=== PATIENT | male | born 1940 | race Hispanic/Latino ===

== ENCOUNTER 2019-08-29 07:31 | Emergency (ER) | payer OTHER ==
[~2019-08-29 07:31] MED LIST: AMOX-426 PO; ATOR10 PO; LEVO500T2 PO; LOSA25TA41 PO; METF-445 PO; PHEN-948 PO; TAMS-1 PO
[2019-08-29 08:12] LABS: APPEARANCE,URINE Clear (CLEAR); BILIRUBIN,URINE Negative (NEGATIVE); COLOR,URINE Yellow (YELLOW); GLUCOSE, URINE (UA) Negative (NEGATIVE); KETONES,URINE Negative (NEGATIVE); LEUKOCYTE ESTERASE ,URINE Moderate (NEGATIVE); NITRATE,URINE Negative (NEGATIVE); OCCULT BLOOD,URINE Moderate (NEGATIVE); PROTEIN,URINE POS 1+ mg/dL (NEGATIVE); UROBILINOGEN,URINE 0.2 mg/dL (0.2-1.0)
[2019-08-29 08:18] LABS: CREATININE 1.9 mg/dL (0.5-1.5); POTASSIUM 4.6 mmol/L (3.5-5.1)
[2019-08-29 08:20] LABS: BASOPHILS % (AUTO) 0.4 % (0.0-5.0); EOSINOPHILS % (AUTO) 2.3 % (0.0-8.0); HEMATOCRIT 33.9 % (42-54); LYMPHOCYTES % (AUTO) 25.1 % (21.0-51.0); MEAN CORPUSCULAR HEMOGLOBIN 30.8 pg (27.0-33.0); MEAN CORPUSCULAR HGB CONC 32.4 g/dL (32.0-36.0); MONOCYTES % (AUTO) 7.8 % (3.0-13.0); PLATELET COUNT (AUTO) 181 K/uL (130-400); RED BLOOD CELL COUNT(AUTO) 3.57 MIL/uL (4.50-6.20); RED CELL DISTRIBUTION WIDTH 13.4 % (11.0-15.5)
[2019-08-29 08:21] LABS: INR 1.08 (0.85-1.15); PARTIAL THROMBOPLASTIN TIME 27.1 SEC (26.3-35.5); PROTHROMBIN TIME 11.3 SEC (9.6-11.6)
[2019-08-29 08:25] LABS: ALBUMIN 3.6 g/dL (3.5-5.0); BILIRUBIN,TOTAL 0.4 mg/dL (0.2-1.0); TOTAL PROTEIN, SERUM 7.4 g/dL (6.0-8.3)
[2019-08-29 08:48] LABS: BACTERIA,URINE Rare /HPF (None Seen); WBC,URINE 26-50 /HPF (0-1)
[2019-08-29] MEDS ORDERED: SODIUM CHLORIDE 0.9% 1000ML 1,000 ML IV ONE (09:38)
[2019-08-29] MEDS ORDERED: CEFTRIAXONE SODIUM 1 GM ONE (09:40)
[2019-08-29] MEDS ORDERED: SODIUM CHLORIDE 0.9% 50 ML IV ONE (09:40)
== END 2019-08-29 10:25 | disposition home or self-care (01) ==
LOC: EDH 07:31
DX: N39.0 Urinary tract infection, site not specified (principal); R31.9 Hematuria, unspecified; N32.89 Other specified disorders of bladder; F03.90 Unspecified dementia, unspecified severity, without behavioral disturbance, psychotic disturbance, mood disturbance, and anxiety; E11.9 Type 2 diabetes mellitus without complications; C67.9 Malignant neoplasm of bladder, unspecified; I10 Essential (primary) hypertension; E78.00 Pure hypercholesterolemia, unspecified; Z87.891 Personal history of nicotine dependence; Z90.49 Acquired absence of other specified parts of digestive tract
CPT/HCPCS: 36415; 74176; 80053; 81001; 85025; 85610; 85730; 86850; 86900; 86901; 87088; 96374; 99284; J0696; J7030

== ENCOUNTER 2020-01-12 10:15 | Inpatient (IN) | payer OTHER ==
[~2020-01-12] VITALS: Ht 154.9 cm; Wt 72.0 kg
[2020-01-12] MEDS ORDERED: CEFTRIAXONE SODIUM 2 GM VIAL ONE (11:37)
[2020-01-12] MEDS ORDERED: LORAZEPAM 2 MG/ML 1 ML VIAL ONE ×2 (13:08→18:19)
[2020-01-12] MEDS ORDERED: HALOPERIDOL LACTATE 5 MG/ML VIAL ONE (15:17)
[2020-01-12] MEDS ORDERED: DiphenhydrAMINE HCL 50 MG/ML VIAL IV PRN (15:30)
[2020-01-12] MEDS ORDERED: NITROGLYCERIN 0.4 MG SL TAB SL PRN (15:30)
[2020-01-12] MEDS ORDERED: MAG HYDROX/AL HYDROX/SIMETH ES 30 ML SUSP UDCUP PO PRN (15:30)
[2020-01-12] MEDS: CEFTRIAXONE SODIUM 1 GM IV SCH (15:30)
[2020-01-12] MEDS ORDERED: ACETAMINOPHEN 325 MG TAB PO PRN ×2 (15:30)
[2020-01-12] MEDS ORDERED: ONDANSETRON HCL 4 MG/2 ML VIAL IV PRN (15:30)
[2020-01-12] MEDS ORDERED: DIPHENHYDRAMINE HCL 25 MG CAPSULE PO PRN (15:30)
[2020-01-12] MEDS ORDERED: GUAIFENESIN-DM 200/20 MG 10 ML PO PRN (15:30)
[2020-01-12] MEDS ORDERED: LACTULOSE 20 GM/30 ML UDCUP PO PRN (15:30)
[2020-01-12] MEDS ORDERED: ACETAMINOPHEN ELIXIR 650 MG/20.3 ML UDCUP ONE (22:57)
[2020-01-13] MEDS ORDERED: ENOXAPARIN SODIUM 40 MG/0.4 ML SYRINGE SQ SCH (09:00)
[2020-01-13] MEDS: FAMOTIDINE 20MG TAB 20 MG TAB PO SCH (09:00)
[2020-01-13] MEDS ORDERED: ACETAMINOPHEN 325 MG TAB ONE (09:42)
[2020-01-13] MEDS ORDERED: ACETAMINOPHEN ELIXIR 325 MG/10.15ML UDCUP ONE ×2 (09:46→17:36)
[2020-01-13] MEDS ORDERED: FAMOTIDINE 20MG TAB 20 MG TAB ONE (10:39)
[2020-01-13] MEDS ORDERED: SODIUM CHLORIDE 0.9% 100 ML IV ONE (10:40)
[2020-01-13] MEDS ORDERED: CEFTRIAXONE SODIUM 1 GM ONE (10:40)
[2020-01-13] MEDS ORDERED: ENOXAPARIN SODIUM 40 MG/0.4 ML SYRINGE SQ ONE (10:40)
[2020-01-13] MEDS ORDERED: LORAZEPAM 2 MG/ML 1 ML VIAL IVP PRN (15:15)
[2020-01-13] MEDS: AZITHROMYCIN 500MG+NS 250ML 250 ML IV SCH (15:15)
[2020-01-13] MEDS: CEFTRIAXONE SODIUM 1 GM IV SCH (15:30)
[2020-01-13] MEDS ORDERED: AZITHROMYCIN 500MG+NS 250ML 250 ML IV ONE (16:19)
[2020-01-13] MEDS ORDERED: LORAZEPAM 2 MG/ML 1 ML VIAL ONE ×2 (16:47→17:22)
[2020-01-13] MEDS ORDERED: ACETAMINOPHEN 650 MG SUPPOSITORY RC ONE (18:22)
[2020-01-13] MEDS ORDERED: HEPARIN SODIUM 5000UNIT/ML 1ML VIAL SQ SCH (20:00)
[2020-01-13] MEDS ORDERED: HEPARIN SODIUM 5000UNIT/ML 1ML VIAL ONE (20:58)
[2020-01-13] MEDS ORDERED: DiphenhydrAMINE HCL 25 MG/10 ML ELIXIR UDCUP ONE (21:40)
[2020-01-14] VITALS (9 sets, daily range): BP systolic 124–155; BP diastolic 54–112; PULSE 100–115; RESP 23–74; TEMP 101.8
[2020-01-14] MEDS ORDERED: HEPARIN SODIUM 5000UNIT/ML 1ML VIAL ONE ×2 (01:48→10:38)
[2020-01-14] MEDS ORDERED: ACETAMINOPHEN 650 MG SUPPOSITORY RC ONE (06:40)
[2020-01-14] MEDS: FAMOTIDINE 20MG TAB 20 MG TAB PO SCH (09:00)
[2020-01-14] MEDS ORDERED: FAMOTIDINE/PF 20 MG/2 ML VIAL IV ONE (10:39)
[2020-01-14] MEDS ORDERED: CEFTRIAXONE SODIUM 1 GM ONE (10:39)
--- NOTE | 2020-01-14 12:11 | NUR ---
DYSPHAGIA EVAL COMPLETED. POCKETING NOTED. RECOMMEND MECHANICAL SOFT/CHOPPED, THIN LIQUIDS; PILLS CRUSHED WITH APPLESAUCE; CHECK FOR RESIDUE IN MOUTH AFTER THE MEALS. RESULTS AND RECOMMENDATIONS WERE DISCUSSED WITH DAUGHTER AT BEDSIDE. ALL QUESTIONS ANSWERED AT THIS TIME. RECOMMEND CONTINUED P.O. IF Pt HAS A DECLINE FROM CURRENT STATUS, A RE-EVALUATION IS WARRANTED. Addendum: 01/14/20 at 1220 by NEMESIO SORTO [facility] Amended: Links added.
--- NOTE | 2020-01-14 13:38 | NUR ---
[facility] CM spoke to pt's spouse Nia Perry discussed dc plans. Pt is independent prior to admission, lives at home with spouse and daughter. Denies any equipments/services. Feels safe to go back home, spouse and daughter able to assist with transportation and needs as necessary. DC plan to home once stable. CM to cont to follow up. Addendum: 01/14/20 at 1339 by POOJA RICARDO LVN CM Amended: Links added.
[2020-01-14] MEDS: AZITHROMYCIN 500MG+NS 250ML 250 ML IV SCH ×2 (15:15→20:23)
[2020-01-14] MEDS: CEFTRIAXONE SODIUM 1 GM IV SCH (15:30)
[2020-01-14] MEDS ORDERED: SODIUM CHLORIDE 0.9% 500ML 500 ML IV ONE (16:20)
[2020-01-14] MEDS ORDERED: IPRATROPIUM/ALBUTEROL SULFATE 3 ML SOLUTION IH ONE (16:26)
[2020-01-14] MEDS ORDERED: PHARMACY COMMUNICATION MISC SCH ×2 (17:00→19:30)
[2020-01-14] MEDS ORDERED: HEPARIN 25000 UNITS/250 ML D5W 250 ML IV PRN (17:15)
[2020-01-14] MEDS ORDERED: DEXMEDETOMIDINE HCL 400 MCG in SODIUM CHLORIDE 0.9% 100 ML IV SCH (19:15)
[2020-01-14] MEDS ORDERED: HALOPERIDOL LACTATE 5 MG/ML VIAL IM SCH (19:15)
[2020-01-14] MEDS ORDERED: NOREPINEPHRINE 4MG/NS 250ML 250 ML IV SCH (19:45)
--- NOTE | 2020-01-14 20:00 | NUR ---
ADMISSION UPON ARRIVAL RECEIVED REPORT FROM OLENA RN DR. JAMAICA WILLARD ORDER TO RETEST PT FOR COVID AND TRANSFER TO COVID ICU. PT WITH HISTORY OF DEMENTIA UNABLE TO COMPLETE ADMISSION DATABASE NO PERSONAL BELONGINGS/MEDICATIONS AT BEDSIDE. PT DAUGHTER FANNY INFORMED OF CURRENT STATUS AND SITUATION. PT RESTLESS WITH 1:1 SITTER IN NO APPARENT DISTRESS WILL CONTINUE TO MONITOR.
[2020-01-14] MEDS: ACETAMINOPHEN 650 MG SUPPOSITORY RC PRN (20:22)
[2020-01-15] VITALS (30 sets, daily range): BP systolic 120–156; BP diastolic 38–109; PULSE 72–108; RESP 13–43; TEMP 98.3–101.1
[2020-01-15] MEDS ORDERED: ALBUTEROL SULFATE/IPRATROPIUM 103/18 MCG/PUFF 14.7 GM INHR IH PRN (00:15)
--- NOTE | 2020-01-15 00:54 | NUR ---
unable to complete admission data base patient and past medical history due to patient confused/dementia. Will contact daughter in the morning.
[2020-01-15] MEDS: IPRATROPIUM/ALBUTEROL SULFATE 3 ML SOLUTION IH PRN ×4 (01:27→22:42)
[2020-01-15] MEDS: FAMOTIDINE 20MG TAB 20 MG TAB PO SCH (08:31)
[2020-01-15] MEDS: ACETAMINOPHEN 650 MG SUPPOSITORY RC PRN (12:08)
[2020-01-15] MEDS: MEROPENEM 1 GM VIAL IVP SCH (13:25)
[2020-01-15] MEDS: AZITHROMYCIN 500MG+NS 250ML 250 ML IV SCH (14:22)
[2020-01-15] MEDS ORDERED: LORAZEPAM 2 MG/ML 1 ML VIAL IM STA (21:09)
[2020-01-16] VITALS (9 sets, daily range): BP systolic 129–151; BP diastolic 59–83; PULSE 86–112; RESP 16–26; TEMP 97.6–101.9
[2020-01-16] MEDS: MEROPENEM 1 GM VIAL IVP SCH ×2 (00:27→12:38)
[2020-01-16] MEDS: ACETAMINOPHEN 650 MG SUPPOSITORY RC PRN ×2 (02:28→22:04)
[2020-01-16] MEDS ORDERED: FAMOTIDINE/PF 20 MG/2 ML VIAL IV ONE (09:10)
[2020-01-16] MEDS: FAMOTIDINE/PF 20 MG/2 ML VIAL IV SCH (09:32)
[2020-01-16] MEDS: IPRATROPIUM/ALBUTEROL SULFATE 3 ML SOLUTION IH PRN ×2 (10:12→19:38)
[2020-01-16] MEDS ORDERED: ACETAMINOPHEN 325 MG TAB ONE (12:35)
[2020-01-16] MEDS: AZITHROMYCIN 500MG+NS 250ML 250 ML IV SCH (15:13)
[2020-01-16] MEDS ORDERED: HEPARIN SODIUM 5000UNIT/ML 1ML VIAL SQ SCH (15:30)
[2020-01-16] MEDS ORDERED: HALOPERIDOL LACTATE 5 MG/ML VIAL IM PRN (19:45)
[2020-01-16] MEDS ORDERED: HEPARIN 25000 UNITS/250 ML D5W 250 ML IV SCH (22:45)
[2020-01-16] MEDS ORDERED: HEPARIN 25000 UNITS/250 ML D5W 250 ML IV ONE (22:49)
--- NOTE | 2020-01-16 23:06 | NUR ---
Hold Heparin drip Spoke to [facility] [place] and was advised to hold heparin drip and re-evaluate tomorrow. Patient continues to be on heparin SQ Q12H
[2020-01-17] VITALS (12 sets, daily range): BP systolic 133–162; BP diastolic 54–111; PULSE 83–97; RESP 15–26; TEMP 98.6–101.1
[2020-01-17] MEDS: MEROPENEM 1 GM VIAL IVP SCH ×2 (00:16→11:37)
[2020-01-17] MEDS: IPRATROPIUM/ALBUTEROL SULFATE 3 ML SOLUTION IH PRN (06:56)
[2020-01-17] MEDS: FAMOTIDINE/PF 20 MG/2 ML VIAL IV SCH (08:04)
[2020-01-17] MEDS: ACETAMINOPHEN 650 MG SUPPOSITORY RC PRN (11:16)
--- NOTE | 2020-01-17 12:17 | NUR ---
FOLLOW UP COMPLETED. Pt WAS DOWNGRADED TO PUREED TEXTURE OVER THE WEEKEND. Pt WITH INCREASED CONFUSION, BITING ON THE SPOON. Pt WITH LOW P.O. REPORTED BY NURSE LANTIGUA. PLEASE CONSIDER SHORT-TERM ALTERNATE MEANS OF NUTRITION/HYDRATION IF Pt CONTINUES WITH LOW P.O. PLEASE NOTE Pt WAS COOPERATIVE AND PARTICIPATED IN ALL TRIALS DURING THE EVALUATION WHEN DAUGHTER WAS AT BEDSIDE. GENERAL SERVICE OFFICER WILL CONTINUE TO FOLLOW Pt. Addendum: 01/17/20 at 1223 by NEMESIO SORTO, [facility] Amended: Links added.
[2020-01-17] MEDS: AZITHROMYCIN 500MG+NS 250ML 250 ML IV SCH (14:09)
[2020-01-17] MEDS ORDERED: VANCOMYCIN PROTOCOL PER PHARMACY IV SCH (15:45)
[2020-01-17] MEDS: VANCOMYCIN 1GM+NS 250ML 250 ML IV SCH (16:08)
--- NOTE | 2020-01-17 18:40 | NUR ---
REPORT GIVEN TO SAPPHIRE SOLORZANO RN, TRANSFERRED TO ROOM 228 VIA BED, PCCU
[2020-01-17] MEDS: ACETAMINOPHEN 325 MG TAB PO PRN (21:58)
[2020-01-17] MEDS: HEPARIN SODIUM 5000UNIT/ML 1ML VIAL SQ SCH (21:59)
[2020-01-18] VITALS (10 sets, daily range): BP systolic 103–169; BP diastolic 58–81; PULSE 88–121; RESP 18–20; TEMP 98–102
[2020-01-18] MEDS: MEROPENEM 1 GM VIAL IVP SCH ×3 (00:44→23:41)
[2020-01-18] MEDS: HALOPERIDOL LACTATE 5 MG/ML VIAL IM PRN (02:03)
[2020-01-18] MEDS: IPRATROPIUM/ALBUTEROL SULFATE 3 ML SOLUTION IH PRN ×2 (07:45→20:38)
[2020-01-18] MEDS: HEPARIN SODIUM 5000UNIT/ML 1ML VIAL SQ SCH ×2 (08:21→20:29)
[2020-01-18] MEDS: FAMOTIDINE/PF 20 MG/2 ML VIAL IV SCH (08:21)
[2020-01-18] MEDS ORDERED: HYDRALAZINE HCL 20 MG/ML VIAL IM PRN (11:15)
--- NOTE | 2020-01-18 13:04 | NUR ---
FOLLOW UP COMPLETED. RECOMMEND PUREED, THIN LIQUIDS; PILLS CRUSHED WITH APPLESAUCE. Pt TOLERATING PUREED, THIN LIQUID DIET. Pt REQUIRES CUES AND COAXING TO PARTICIPATE IN P.O. Pt WITH LOW P.O. DURING MEAL TIMES. RECOMMEND DIETARY CONSULT AT THIS TIME. RECOMMEND CONTINUED PUREED, THIN LIQUID DIET; PILLS CRUSHED. Pt REQUIRES CUES AND COAXING DURING MEAL TIMES. PHOTO SPECIALIST COORDINATED WITH NURSE LEARY. Addendum: 01/18/20 at 1309 by NEMESIO SORTO [facility] Amended: Links added.
--- NOTE | 2020-01-18 14:21 | NUR ---
RDSCREEN - POOR PO, LOS X [address] of poor PO. Pt with severe dementia, Airborne isolation. Pt with Poor PO intake. No report of GI distress. Recommend Ensure with meals to encourage improved energy intake. Also to monitor nutritional labs. Recommend continue Regular, Puree diet order Recommend Ensure TID RD to continue to monitor. Please notify as additional nutrition concerns arise. Thank you. Addendum: 01/18/20 at [address] Amended: Links added.
[2020-01-18] MEDS: VANCOMYCIN 1GM+NS 250ML 250 ML IV SCH (16:13)
[2020-01-18] MEDS: ACETAMINOPHEN 325 MG TAB PO PRN (20:26)
[2020-01-19 04:07] VITALS: BP 150/71; PULSE 111; RESP 18; TEMP 99.5
[2020-01-19 08:48] VITALS: BP 109/66; PULSE 109; RESP 18; TEMP 99.1
[2020-01-19] MEDS: FAMOTIDINE/PF 20 MG/2 ML VIAL IV SCH (09:03)
[2020-01-19] MEDS: HEPARIN SODIUM 5000UNIT/ML 1ML VIAL SQ SCH ×2 (09:05→20:02)
[2020-01-19 12:32] VITALS: BP 121/77; PULSE 116; RESP 18; TEMP 99.8
[2020-01-19] MEDS: MEROPENEM 1 GM VIAL IVP SCH (13:09)
[2020-01-19] MEDS: FLUCONAZOLE 200 MG/NS 100 ML 100 ML IV SCH (13:09)
--- NOTE | 2020-01-19 15:20 | NUR ---
KIRSTY MELENDEZ SPOKE TO YEISON DESAI AND READ THE RECORDINGS LIBRARIAN NOTES. PATIENT HAD A FEVER OF 102 LAST NIGHT, HIGH RESPIRATIONS AND PULSE RATE. RECORDINGS LIBRARIAN NOTES SAID EVEN THOUGH PATIENT COVID TESTING NEGATIVE XRAY AND CLINICAL SYMPTOMS SAY OTHER MARCUS. AT THIS TIME PATIENT DOES NOT MEET DISCHARGE SCREENS FOR SNF. Addendum: 01/19/20 at 1522 by SHADE AYERS RN CM Amended: Links added.
[2020-01-19 16:46] VITALS: BP 101/37; PULSE 118; RESP 18; TEMP 101.2
[2020-01-19] MEDS: VANCOMYCIN 1GM+NS 250ML 250 ML IV SCH (17:16)
[2020-01-19] MEDS: ACETAMINOPHEN 325 MG TAB PO PRN (17:17)
--- NOTE | 2020-01-19 18:00 | NUR ---
URINE CULTURE TRIED TO OBTAIN URINE CULTURE WITH IN AND OUT CATH AT THIS TIME, AND WAS UNABLE TO COLLECT ANY URINE. WILL TRY AGAIN LATER.
[2020-01-19 20:00] VITALS: BP 148/98; PULSE 115; RESP 23; TEMP 100.7
[2020-01-19 20:26] VITALS: PULSE 102; RESP 20
[2020-01-20] VITALS (8 sets, daily range): BP systolic 113–134; BP diastolic 41–83; PULSE 76–117; RESP 18–21; TEMP 97.2–100.5
--- NOTE | 2020-01-20 06:00 | NUR ---
Daughter updated on patient status. Spoke to Kristy daughter and updated her on patient status. informed her pt had fever during the day at approximately 5pm. No fevers during the night, no distress noted, laying in bed calm and cooperative, no shortness of breath, and hemodynamically stable but AOX1..
[2020-01-20] MEDS: FAMOTIDINE/PF 20 MG/2 ML VIAL IV SCH (08:26)
[2020-01-20] MEDS: HEPARIN SODIUM 5000UNIT/ML 1ML VIAL SQ SCH ×2 (08:35→20:55)
--- NOTE | 2020-01-20 11:19 | NUR ---
FOLLOW UP COMPLETED. ALLIANCE DIRECTOR COORDINATED WITH NURSE HANNON. Pt WITH LOW P.O., TAKING 50% OF ENSURE AT MEALS. Pt CURRENTLY ON PUREED, THIN LIQUIDS; PILLS CRUSHED WITH APPLESAUCE. Pt WITH NO OVERT S/S OF ASPIRATION DURING P.O. AT THIS TIME. LOW P.O. IS A CONCERN AT THIS TIME. RD AWAKE AND ON THE CASE. Addendum: 01/20/20 at 1125 by NEMESIO SORTO [facility] Amended: Links added.
[2020-01-20] MEDS ORDERED: DEXTROSE 5%-WATER 1,000 ML IV ONE (11:37)
[2020-01-20] MEDS: FLUCONAZOLE 200 MG/NS 100 ML 100 ML IV SCH (12:08)
[2020-01-20] MEDS: DEXTROSE 5%-WATER 1,000 ML IV SCH (12:08)
[2020-01-20] MEDS: MEROPENEM 1 GM VIAL IVP SCH ×2 (12:08)
--- NOTE | 2020-01-20 16:11 | NUR ---
DC PLAN SPOKE TO YEISON DESAI SAID PATIENT BELONGS TO DR. MCKEON. SPOKE TO DR. RHODES SAID TO TALK TO DR. SANTOYO. REGARDING HOW LONG ON CURRENT ABX AND IF HE AGREES WITH [facility]. LET NURSE AND CHARGE NURSE KNOW. NURSE SENT MESSAGE NO REPLY BACK AT THIS TIME. Addendum: 01/20/20 at 1620 by SHADE AYERS RN CM Amended: Links added.
[2020-01-20] MEDS: VANCOMYCIN 1GM+NS 250ML 250 ML IV SCH (16:39)
[2020-01-20] MEDS: ACETAMINOPHEN 650 MG SUPPOSITORY RC PRN (16:40)
[2020-01-20] MEDS: HALOPERIDOL LACTATE 5 MG/ML VIAL IM PRN (21:29)
--- NOTE | 2020-01-20 23:55 | NUR ---
O2 SAT Notified by LUNA Clarke at 2300 pt 02 sat in 70s, o2 sat rechecked 68% RA NC applied 5 L with immediate response o2 sat 94% titrated back down to 2 L NC and maintaining 02 sat at 91-94 on 2 L o2. Pt did receive haldol before due to combative behavior, striking out at nursing staff and attempting to get OOB, haldol effective pt now resting in bed.
[2020-01-21] VITALS (7 sets, daily range): BP systolic 109–133; BP diastolic 62–99; PULSE 69–118; RESP 18–22; TEMP 97.5–101
[2020-01-21] MEDS: MEROPENEM 1 GM VIAL IVP SCH ×2 (00:47→10:35)
[2020-01-21] MEDS: DEXTROSE 5%-WATER 1,000 ML IV SCH ×2 (00:50→10:35)
--- NOTE | 2020-01-21 05:59 | NUR ---
O2 SAT 75 APPLIED nc @ 5 l O2 SAT 85-88, NRB APPLIED AT 15 L O2 SAT 91-92. RR EVEN AND UNLABORED, NO CHANGE IN COUGH. BEATER WORKER HELPER PROVIDER MECHANICAL SPREADER OPERATOR [place] NOTIFIED OF CHANGE IN O2 REQUIREMENT NO NEW ORDERS RECEIVED. DAUGHTER CALLED FOR UPDATE AND PROVIDED UPDATE ON PATIENT.
[2020-01-21] MEDS: FAMOTIDINE/PF 20 MG/2 ML VIAL IV SCH (10:32)
[2020-01-21] MEDS: HEPARIN SODIUM 5000UNIT/ML 1ML VIAL SQ SCH ×2 (10:34→21:47)
[2020-01-21] MEDS: FLUCONAZOLE 200 MG/NS 100 ML 100 ML IV SCH (10:35)
[2020-01-21] MEDS: HALOPERIDOL LACTATE 5 MG/ML VIAL IM PRN (13:15)
--- NOTE | 2020-01-21 14:27 | NUR ---
FOLLOW COMPLETED. Pt WITH O2 DECLINING. Pt CURRENTLY ON NON-REBREATHER AND NOT EATING WELL AT THIS TIME. RECOMMEND NPO STATUS WITH ALTERNATE MEANS OF NUTRITION/HYDRATION; PLEASE CONSIDER IV SECONDARY TO Pt WITH DEMENTIA AND WOULD REMOVE NG TUBE. MARINE EXTENSION AGENT COORDINATED WITH NURSE MAX. Addendum: 01/21/20 at 1430 by NEMESIO SORTO, [facility] Amended: Links added.
[2020-01-22] VITALS (8 sets, daily range): BP systolic 122–153; BP diastolic 42–114; PULSE 97–119; RESP 20–24; TEMP 97.7–99.4
[2020-01-22] MEDS: MEROPENEM 1 GM VIAL IVP SCH ×2 (00:14→14:15)
[2020-01-22] MEDS: THIAMINE HCL 100 MG/ML 2ML VIAL IM SCH (09:13)
[2020-01-22] MEDS: FAMOTIDINE/PF 20 MG/2 ML VIAL IV SCH (09:13)
[2020-01-22] MEDS: HEPARIN SODIUM 5000UNIT/ML 1ML VIAL SQ SCH ×2 (09:17→20:16)
[2020-01-22] MEDS: DEXTROSE 5%-WATER 1,000 ML IV SCH (12:00)
[2020-01-22] MEDS: FLUCONAZOLE 200 MG/NS 100 ML 100 ML IV SCH (14:15)
[2020-01-23] VITALS (8 sets, daily range): BP systolic 119–137; BP diastolic 59–97; PULSE 91–123; RESP 20–36; TEMP 97.6–100.6
[2020-01-23] MEDS: MEROPENEM 1 GM VIAL IVP SCH ×2 (00:21→12:19)
[2020-01-23] MEDS: ACETAMINOPHEN 650 MG SUPPOSITORY RC PRN ×2 (01:00→21:04)
[2020-01-23] MEDS: DEXTROSE 5%-WATER 1,000 ML IV SCH ×2 (01:01→14:40)
--- NOTE | 2020-01-23 01:43 | NUR ---
TACHYPNEIC PT TACHYPNEIC WITH RR UP TO 40 AND MOANING IN BED. SKOOG OPERATOR [place] NOTIFIED ORDER RECEIVED FOR MORPHINE 1 MG IVP PRN.
[2020-01-23] MEDS: MORPHINE SULFATE 2 MG/ML 1ML SYG IVP PRN ×3 (01:57→10:18)
--- NOTE | 2020-01-23 04:37 | NUR ---
O2/HR HR UP TO 120S, 02 SAT 85% 15 l VIA NRB, RESP 40S LABORED, PT IS DNR. BRAKE HOLDER [place] AWARE OF PT STATUS. WILL KEEP PT COMFORTABLE WITH PRN MEDICATIONS.
[2020-01-23] MEDS: HEPARIN SODIUM 5000UNIT/ML 1ML VIAL SQ SCH ×2 (09:50→21:32)
[2020-01-23] MEDS: FAMOTIDINE/PF 20 MG/2 ML VIAL IV SCH (09:51)
[2020-01-23] MEDS: THIAMINE HCL 100 MG/ML 2ML VIAL IM SCH (09:52)
--- NOTE | 2020-01-23 10:35 | NUR ---
Rounding on pt with Dr. Licona, notified of lab results. Called daughter and physician spoke with daughter regarding further recommendations for hospice consult. New orders given to d/c prn morphine and start IV Dilaudid 0.5mg q3 prn and to notify nephrology of hospice consult.
[2020-01-23] MEDS: FLUCONAZOLE 200 MG/NS 100 ML 100 ML IV SCH (12:20)
[2020-01-23] MEDS: HYDROMORPHONE HCL 0.5 MG/0.5 ML ML IVP PRN ×2 (14:20→15:29)
[2020-01-23] MEDS ORDERED: PHARMACY COMMUNICATION MISC SCH (17:30)
[2020-01-23] MEDS ORDERED: MORPHINE-NS 50 MG/50 ML 50 ML IV SCH (17:45)
[2020-01-23] MEDS ORDERED: LORAZEPAM 2 MG/ML 1 ML VIAL IVP PRN (17:45)
[2020-01-23] MEDS: HYDROMORPHONE HCL 2 MG/ML VIAL IVP PRN ×2 (18:10→22:01)
--- NOTE | 2020-01-23 19:13 | NUR ---
1745 Dr. Cueva rounding with pt. new orders given see med list. Pt not to be moved tonight, DNR orders to remain the same, hospice consult in place.
--- NOTE | 2020-01-23 23:36 | NUR ---
TEMP/PT STATUS TEMP UP TO 102.1 PT RECEIVED TYLENOL PREVIOUSLY OK, GISELLE CURRY NOTIFED PT PENDING HOSPICE CONSULT NO FURTHER ORDERS. PT SKIN MOTTLED THROUGHOUT. RR LABORED, NRB ON 15 l SATS IN 70S. ATTEMPTING TO MAKE COMFORTABLE WITH PRN DILAUDID. SPOKE WITH DAUGHTER AT BEGINNING OF SHIFT NOTIFIED OF VERY POOR PROGNOSIS FOR PT TONIGHT AND VERBALIZED UNDERSTANDING.
[2020-01-24] MEDS: MEROPENEM 1 GM VIAL IVP SCH (00:06)
[2020-01-24 00:16] VITALS: BP 99/44; PULSE 114; RESP 22; TEMP 102.1
--- NOTE | 2020-01-24 03:15 | NUR ---
Time of 0315 Patient asystole, pupils fixed, no spontaneous breaths and no apical pulse heard over a min.
--- NOTE | 2020-01-24 03:30 | NUR ---
Notification of Family notified of patient at 0330.
== END 2020-01-24 03:15 | disposition expired | DRG 871 ==
LOC: EDH 10:15 → EDHIP 15:28 → 2BH 01-14 18:30 → 2CH 01-14 20:12 → 2BH 01-14 22:24 → 2DH 01-17 19:00
PROVIDERS: ADMIT Family Medicine; ATTEND Family Medicine
DX: A41.50 Gram-negative sepsis, unspecified (principal); J18.9 Pneumonia, unspecified organism; J96.01 Acute respiratory failure with hypoxia; N17.0 Acute kidney failure with tubular necrosis; R65.21 Severe sepsis with septic shock; N39.0 Urinary tract infection, site not specified; N17.9 Acute kidney failure, unspecified; I82.611 Acute embolism and thrombosis of superficial veins of right upper extremity; E87.0 Hyperosmolality and hypernatremia; E87.1 Hypo-osmolality and hyponatremia; G93.40 Encephalopathy, unspecified; Z66 Do not resuscitate; D69.6 Thrombocytopenia, unspecified; F03.90 Unspecified dementia, unspecified severity, without behavioral disturbance, psychotic disturbance, mood disturbance, and anxiety; Z20.828 Contact with and (suspected) exposure to other viral communicable diseases; D64.9 Anemia, unspecified; E11.22 Type 2 diabetes mellitus with diabetic chronic kidney disease; E78.5 Hyperlipidemia, unspecified; I12.9 Hypertensive chronic kidney disease with stage 1 through stage 4 chronic kidney disease, or unspecified chronic kidney disease; N18.9 Chronic kidney disease, unspecified; Z74.01 Bed confinement status; Z92.21 Personal history of antineoplastic chemotherapy; Z87.440 Personal history of urinary (tract) infections; Z85.51 Personal history of malignant neoplasm of bladder; Z83.3 Family history of diabetes mellitus; Z82.3 Family history of stroke; Z82.0 Family history of epilepsy and other diseases of the nervous system; Z82.49 Family history of ischemic heart disease and other diseases of the circulatory system